=== PATIENT | male | born 1960 | race Caucasian/White ===

== ENCOUNTER 2023-02-26 10:24 | Emergency (ER) | payer BC, OTHER ==
[~2023-02-26] VITALS: Ht 177.8 cm; Wt 99.8 kg
[2023-02-26 10:33] VITALS: O2SAT 100
[2023-02-26] MEDS ORDERED: SEMA0.25 SQ (11:00)
[2023-02-26] MEDS ORDERED: OLME1TAB19 PO (11:00)
[2023-02-26] MEDS ORDERED: CARI3CAP PO (11:00)
[2023-02-26] MEDS ORDERED: ATOR40TA PO (11:00)
[2023-02-26] MEDS ORDERED: SERT-440 PO (11:00)
[2023-02-26] MEDS ORDERED: LAMO100T2 PO (11:00)
== END 2023-02-26 12:10 | disposition home or self-care (01) ==
LOC: ER 10:27
DX: H26.9 Unspecified cataract (principal); H53.8 Other visual disturbances; J45.909 Unspecified asthma, uncomplicated; F31.9 Bipolar disorder, unspecified; Z79.899 Other long term (current) drug therapy
CPT/HCPCS: 70486; A4606; A4663